=== PATIENT | male | born 1965 | race Caucasian/White ===

== ENCOUNTER 2017-05-21 16:14 | Emergency (ER) | payer BC ==
[2017-05-21 16:31] VITALS: BP 134/90
--- NOTE | 2017-05-21 16:39 | EDM.PDOC ---
ED HPI GENERAL MEDICAL PROBLEM - General Chief Complaint: Skin Complaint Stated Complaint: INSECT BITE TO LEFT KNEE Time Seen by Provider: 05/21/17 16:15 Source of Information: Reports: Patient History Limitations: Reports: No Limitations - History of Present Illness INITIAL COMMENTS - FREE TEXT/NARRATIVE: HISTORY AND PHYSICAL: History of present illness: [Patient comes to the emergency room complaining of a "spider bite" to his left knee. States that he woke up this morning and had some discomfort to his left knee. He noticed erythematous bite-like lesion to his L knee. He has not had any drainage from the site. Tenderness and warmth in his lower thigh and proximal lower leg. He has not noticed any swelling. No fever chills. No chest pain, shortness of breath or difficulty breathing. Patient does not have a local primary care provider as he is in town for 4 days only for work and then will be returning home to [place]. He has no other complaints or concerns at this time.] Review of systems: As per history of present illness and below otherwise all systems reviewed and negative. Past medical history: As per history of present illness and as reviewed below otherwise noncontributory. Surgical history: As per history of present illness and as reviewed below otherwise noncontributory. Social history: No reported history of drug or alcohol abuse. Family history: As per history of present illness and as reviewed below otherwise noncontributory. Physical exam: HEENT: Atraumatic, normocephalic. Oral mucous membranes are pink and moist. Extremities: Dime sized erythematous round lesion to left lateral knee with dark center. No erythema, streaking, warmth. He is tender with palpation over his distal left thigh. Neurovascular unremarkable. Neuro: Awake, alert, oriented. Motor and sensory unremarkable throughout. Exam nonfocal. Diagnostics: [CBC] Impression: [insect bite] Plan: [Discussed with patient that lab results are completely normal. We discussed that debridement is not indicated and that he should continue to monitor. Start Bactrim DS No. 14 sig one by mouth twice a day 0 refills. Follow up with PCP for recheck in the next several days. Strict return precautions are reviewed with the patient. He is in agreement with today's plan. All questions are answered and concerns are addressed.] Definitive disposition and diagnosis as appropriate pending reevaluation and review of above. Left Knee Pain Score (Numeric/FACES): 2 - Related Data Allergies Allergy/AdvReac Type Severity Reaction Status Date / Time No Known Allergies Allergy Verified 05/21/17 16:28 Home Meds: Home Meds . [No Known Home Meds] 05/21/17 [History] Past Medical History HEENT History: Reports: None Cardiovascular History: Reports: High Cholesterol Respiratory History: Reports: None Gastrointestinal History: Reports: None Genitourinary History: Reports: None Psychiatric History: Reports: None - Infectious Disease History Infectious Disease History: Reports: None - Past Surgical History HEENT Surgical History: Reports: None Cardiovascular Surgical History: Reports: None Respiratory Surgical History: Reports: None Male Surgical History: Reports: None Social & Family History - Tobacco Use Smoking Status *Q: Never Smoker ED ROS GENERAL - Review of Systems Review Of Systems: ROS reveals no pertinent complaints other than HPI. ED EXAM, SKIN/RASH Exam: See Below Course - Vital Signs Last Recorded V/S: Last Vital Signs Temp 97.7 F 05/21/17 16:28 Pulse 95 05/21/17 16:28 Resp 16 05/21/17 16:28 BP 134/90 05/21/17 16:28 Pulse Ox 99 05/21/17 16:28 - Orders/Labs/Meds Labs: Laboratory Tests 05/21/17 Range/Units 16:29 WBC 7.05 (4.0-11.0) K/uL RBC 5.12 (4.50-5.90) M/uL Hgb 16.2 (13.0-17.0) g/dL Hct 44.9 (38.0-50.0) % MCV 87.7 (80.0-98.0) fL MCH 31.6 (27.0-32.0) pg MCHC 36.1 (31.0-37.0) g/dL RDW Std Deviation 40.0 (28.0-62.0) fl RDW Coeff of Mendy 13 (11.0-15.0) % Plt Count 195 (150-400) K/uL MPV 9.50 (7.40-12.00) fL Neut % (Auto) 48.5 (48.0-80.0) % Lymph % (Auto) 37.7 (16.0-40.0) % [place] % (Auto) 6.2 (0.0-15.0) % Eos % (Auto) 6.7 (0.0-7.0) % Baso % (Auto) 0.9 (0.0-1.5) % Neut # (Auto) 3.4 (1.4-5.7) K/uL Lymph # (Auto) 2.7 H (0.6-2.4) K/uL [place] # (Auto) 0.4 (0.0-0.8) K/uL Eos # (Auto) 0.5 (0.0-0.7) K/uL Baso # (Auto) 0.1 (0.0-0.1) K/uL Nucleated RBC % 0.0 /100WBC Nucleated RBCs # 0 K/uL Departure - Departure Time of Disposition: 17:10 Disposition: Home, Self-Care 01 Condition: Good Clinical Impression: Insect bite - Discharge Information Instructions: Insect Bite, [id number] Referrals: PCP,None [Primary Care Provider] - Forms: ED Department Discharge Additional Instructions: The following information is given to patients seen in the emergency department who are being discharged to home. This information is to outline your options for follow-up care. We provide all patients seen in our emergency department with a follow-up referral. The need for follow-up, as well as the timing and circumstances, are variable depending upon the specifics of your emergency department visit. If you don't have a primary care physician on staff, we will provide you with a referral. We always advise you to contact your personal physician following an emergency department visit to inform them of the circumstance of the visit and for follow-up with them and/or the need for any referrals to a consulting specialist. The emergency department will also refer you to a specialist when appropriate. This referral assures that you have the opportunity for follow-up care with a specialist. All of these measure are taken in an effort to provide you with optimal care, which includes your follow-up. Under all circumstances we always encourage you to contact your private physician who remains a resource for coordinating your care. When calling for follow-up care, please make the office aware that this follow-up is from your recent emergency room visit. If for any reason you are refused follow-up, please contact the [facility] emergency department at and asked to speak to the emergency department charge nurse. [facility] [address] [place] [id number] Establish care with a local primary care provider and follow-up there in the next week. Tylenol or ibuprofen as needed for discomfort. Return to ER as needed as discussed.
== END 2017-05-21 17:13 | disposition home or self-care (01) ==
LOC: MW.ED 16:14
DX: S80.262A Insect bite (nonvenomous), left knee, initial encounter (principal); E78.00 Pure hypercholesterolemia, unspecified; W57.XXXA Bitten or stung by nonvenomous insect and other nonvenomous arthropods, initial encounter
CPT/HCPCS: 36415; 85025; 99282; 99283